=== PATIENT | male | born 1960 | race African-American/Black ===

== ENCOUNTER 2018-05-07 14:50 | Emergency (ER) | payer OTHER ==
[~2018-05-07] VITALS: Ht 182.9 cm; Wt 174.2 kg
[~2018-05-07 14:50] MED LIST: ADULT LOW DOSE81 MG PO; APIDRA PO; ASPIRIN EC325 M1; BENAZEPRIL HCL20 MG PO; BENTYL 20 MG TA20 M1 PO; BYSTOLIC 5 MG5 M1 PO; CLARITIN10 MG PO; COZAAR 50 MG TA50 MG PO; DIOVAN320 MG PO; HYDROCODON-ACE1 EAC7; HYDROCODON-ACE1 EAC7 PO; K-DUR10 ME1 PO; KEFLEX500 MG PO; LANTUS SUBQ; LASIX 20 MG TAB20 MG PO; LASIX 40 MG TAB40 M1; LASIX 40 MG TAB40 M1 PO; LOTREL 10-20 M1 EACH PO; MAGNESIUM400 MG PO; MOBIC15 MG; NORCO 5-325 TA1 EACH PO; ONDANSETRON HCL4 M2; OXYBUTYNIN 5 MG5 M2; PERCOCET 5-3251 EACH PO; PERCOCET PO; PREDNISONE 5 MG5 M1 PO; PROTONIX40 M1 PO; PROTONIX40 M2 PO; RANITIDINE 150150 MG PO; SPIRONOLACTONE25 M1 PO; TOUJEO SOL300 UNIT/1; TRIAMTERENE-HC1 EAC3 PO; VALIUM2 MG PO; ZANTAC 150MG T150 MG PO; ZETIA10 MG PO; ZOCOR40 MG PO
[2018-05-07] MEDS ORDERED: TYLENOL ARTHRI650 MG PO (15:59)
[2018-05-07 16:14] VITALS: BP 173/70
== END 2018-05-07 16:15 | disposition home or self-care (01) ==
LOC: ER 14:50
DX: S80.211A Abrasion, right knee, initial encounter (principal); S60.414A Abrasion of right ring finger, initial encounter; M54.5 Low back pain; E11.9 Type 2 diabetes mellitus without complications; I10 Essential (primary) hypertension; Z87.442 Personal history of urinary calculi; Z87.891 Personal history of nicotine dependence; W10.8XXA Fall (on) (from) other stairs and steps, initial encounter; Y93.89 Activity, other specified; Y92.89 Other specified places as the place of occurrence of the external cause; Y99.8 Other external cause status

== ENCOUNTER 2018-06-10 09:55 | Emergency (ER) | payer OTHER ==
[~2018-06-10] VITALS: Ht 177.8 cm; Wt 164.7 kg
[~2018-06-10 09:55] MED LIST changes: +TYLENOL ARTHRI650 MG PO
[2018-06-10] MEDS ORDERED: NORVASC10 MG PO (10:48)
[2018-06-10] MEDS ORDERED: VALIUM2 MG PO (10:49)
[2018-06-10] MEDS ORDERED: CHILDREN'S ASPI81 M1 PO ×2 (10:49→10:50)
[2018-06-10] MEDS ORDERED: LASIX 80 MG TAB80 MG PO (10:50)
[2018-06-10] MEDS ORDERED: ATORVASTATIN CA40 MG PO (10:50)
[2018-06-10] MEDS ORDERED: VENTOLIN HFA INH8 GM INH (10:51)
[2018-06-10] MEDS ORDERED: MAGOX 400400 MG PO (10:51)
[2018-06-10] MEDS ORDERED: BYSTOLIC 5 MG5 M1 PO (10:51)
[2018-06-10] MEDS ORDERED: OXYBUTYNIN 5 MG5 M2 PO (10:52)
[2018-06-10] MEDS ORDERED: NORCO 5-325 TA1 EACH PO (10:52)
[2018-06-10] MEDS ORDERED: PROTONIX40 M1 PO (10:52)
[2018-06-10] MEDS ORDERED: BASAGLAR K100 UNIT/1 SUBQ (10:53)
[2018-06-10] MEDS ORDERED: ZETIA10 MG PO (10:53)
[2018-06-10] MEDS ORDERED: COZAAR 25 MG TA25 M1 PO (10:53)
[2018-06-10 10:57] LABS: ABSOLUTE NEUTROPHILS 5.2 thou/uL (1.4-8.2); BASOPHILS 1.3 % (0.0-2.0); EOSINOPHILS 3.7 % (0.0-3.0); HEMATOCRIT 34.4 % (42.0-52.0); HEMOGLOBIN 11.1 gm/dL (14.0-18.0); MCH 27.9 pg (26.0-34.0); MCHC 32.2 g/dL (28.0-37.0); MCV 86.7 fL (80.0-100.0); MONOCYTES 7.3 % (1.0-8.0); PLATELET COUNT 347 thou/uL (150-400); POLYS 70.7 % (36.0-66.0); RBC 3.97 mil/uL (4.50-6.00); RDW 14.2 % (10.5-14.5); WBC 7.4 thou/uL (4.0-11.0)
[2018-06-10 11:05] LABS: ANION GAP 11 mmol/L (7-16); BUN 52 mg/dL (7-18); CALCIUM 9.4 mg/dL (8.5-10.1); CHLORIDE 105 mmol/L (98-107); CO2 25 mmol/L (21-32); CREATININE 4.3 mg/dL (0.7-1.3); GLUCOSE 144 mg/dL (74-106); POTASSIUM 5.5 mmol/L (3.5-5.1); SODIUM 141 mmol/L (136-145)
[2018-06-10 11:14] LABS: TROPONIN-I <0.06 ng/mL (<0.06)
[2018-06-10 11:50] VITALS: BP 171/71
--- NOTE | 2018-06-10 13:58 | EKG ---
[address] [address] ELECTROCARDIOGRAM REPORT Name: RICKI FARRAR Room #: DEP Shweta#: [id number] Admission: 06/10/18 Attend Phys: Discharge: 06/10/18 Date of : 56 Report #: [id number] THIS REPORT FOR: //name// [facility] ED Test Date: 2018-06-10 Test Time: 10:13:51 Pat Name: RICKI FARRAR Department: Room: Gender: M [employer] Agent: KOLBYChrista : 1960 Requested By: Wilber Mitchell Order Number: [id number] MD: Esequiel Slater Measurements Intervals [place] Rate: 68 P: 49 CA: 213 QRS: 2 QRSD: 96 T: 52 QT: 388 QTc: 413 Interpretive Statements Sinus rhythm Prolonged CA interval Probable left atrial enlargement Compared to ECG 01/08/2018 16:48:21 Poor R-wave progression no longer present Electronically Signed On 06-10-2018 13:57:49 HOME HEALTH NURSE LICENSED PRACTICAL by Esequiel Slater [email or web address] <ELECTRONICALLY SIGNED> By: Esequiel Slater MD 06/10/18 1357 [id number] [id number] Esequiel Slater MD /LOYDA
== END 2018-06-10 11:55 | disposition home or self-care (01) ==
LOC: ER 09:55
PROVIDERS: Emergency Medicine
DX: I12.9 Hypertensive chronic kidney disease with stage 1 through stage 4 chronic kidney disease, or unspecified chronic kidney disease (principal); E11.22 Type 2 diabetes mellitus with diabetic chronic kidney disease; N18.9 Chronic kidney disease, unspecified; E87.5 Hyperkalemia; R55 Syncope and collapse; N25.89 Other disorders resulting from impaired renal tubular function; Z87.442 Personal history of urinary calculi; Z87.891 Personal history of nicotine dependence; Z79.4 Long term (current) use of insulin

== ENCOUNTER 2018-07-13 21:24 | Inpatient (IN) | payer OTHER ==
[~2018-07-13] VITALS: Ht 182.9 cm; Wt 163.3 kg
[~2018-07-13 21:24] MED LIST changes: +ATORVASTATIN CA40 MG PO; +BASAGLAR K100 UNIT/1 SUBQ; +CHILDREN'S ASPI81 M1 PO; +COZAAR 25 MG TA25 M1 PO; +LASIX 80 MG TAB80 MG PO; +MAGOX 400400 MG PO; +NORVASC10 MG PO; +OXYBUTYNIN 5 MG5 M2 PO; +VENTOLIN HFA INH8 GM INH
[2018-07-13 21:25] VITALS: BP 189/60
--- NOTE | 2018-07-13 22:16 | EKG ---
[place] [address] [facility] [place] [place] [address] ELECTROCARDIOGRAM REPORT Name: RICKI FARRAR Room #: [facility] [place] [place] [id number] ������������������ Admission: 07/13/18 ������������������ Attend Phys: Discharge: ������������������ Date of : 56 Report #: [id number] ����������������������������������������������������������������� [id number] THIS REPORT FOR: //name// [facility] ED Test Date: 2018-07-13 Test Time: 21:54:14 Pat Name: RICKI FARRAR Department: Room: Gender: Manager Unix: aylin : 1960 Requested By: Ortega William Order Number: [id number] MD: Esequiel Slater Measurements Intervals [place] Rate: 74 P: 69 MA: 222 QRS: -3 QRSD: 96 T: 52 QT: 390 QTc: 433 Interpretive Statements Sinus rhythm Prolonged MA interval Probable left atrial enlargement Abnormal R-wave progression, late transition Compared to ECG 06/10/2018 10:13:51 No significant changes Electronically Signed On 07-13-2018 22:16:05 SELF PAY COLLECTOR by Esequiel Slater [email or web address] ��������������������������������������������� <ELECTRONICALLY SIGNED> ���������������������������������������� By: Esequiel Slater MD ��������������������������������������������� 07/13/18 2216 53 53 Esequiel Slater MD /LOYDA
[2018-07-13 23:10] LABS: ABSOLUTE NEUTROPHILS 6.2 thou/uL (1.4-8.2); BASOPHILS 1.1 % (0.0-2.0); EOSINOPHILS 3.2 % (0.0-3.0); HEMATOCRIT 30.8 % (42.0-52.0); LYMPHOCYTES 10.8 % (24.0-44.0); MCH 27.6 pg (26.0-34.0); MCHC 32.5 g/dL (28.0-37.0); MONOCYTES 9.2 % (1.0-8.0); PLATELET COUNT 352 thou/uL (150-400); POLYS 75.7 % (36.0-66.0); RBC 3.62 mil/uL (4.50-6.00); RDW 14.1 % (10.5-14.5); WBC 8.2 thou/uL (4.0-11.0)
[2018-07-13 23:12] LABS: ANION GAP 12 mmol/L (7-16); BUN 66 mg/dL (7-18); CHLORIDE 101 mmol/L (98-107); CO2 25 mmol/L (21-32); CREATININE 4.3 mg/dL (0.7-1.3); GLUCOSE 223 mg/dL (74-106); SODIUM 138 mmol/L (136-145)
[2018-07-13 23:21] LABS: ALBUMIN 3.4 g/dL (3.4-5.0); MAGNESIUM 2.4 mg/dL (1.8-2.4); SGOT 18 U/L (15-37); SGPT 18 U/L (30-65); TOTAL BILIRUBIN 0.3 mg/dL (<0.1-1.0); TOTAL PROTEIN 7.9 g/dL (6.4-8.2); TROPONIN-I <0.06 ng/mL (<0.06)
[2018-07-13 23:25] LABS: URINE BILIRUBIN NEGATIVE (Negative); URINE BLOOD NEGATIVE (Negative); URINE CLARITY CLEAR; URINE COLOR YELLOW; URINE GLUCOSE-RANDOM* NEGATIVE (Negative); URINE KETONES NEGATIVE (Negative); URINE LEUKOCYTES-REFLEX NEGATIVE (Negative); URINE NITRITE-REFLEX NEGATIVE (Negative); URINE PROTEIN (DIPSTICK) 1+ (Negative); URINE UROBILINOGEN 0.2 E.U./dl (0.2-1.0)
[2018-07-13 23:41] VITALS: BP 169/75
[2018-07-13 23:47] LABS: SQUAMOUS 0-3 Few /LPF (0-3); URINE RBC 3-10 Few /HPF (0-2); URINE WBC-REFLEX 0-5 Rare /HPF (0-5)
[2018-07-13 23:48] LABS: BACTERIA-REFLEX 1-9 Few /HPF (None Seen); CASTS None Seen /LPF (None Seen); CRYSTALS None Seen /LPF (None Seen)
[2018-07-14] VITALS (7 sets, daily range): BP systolic 130–188; BP diastolic 60–86
--- NOTE | 2018-07-14 02:18 | NUR ---
PT ARRIVED ON UNIT FROM ER AT 0000. ADMITTED WITH CHF EXACERBATION AND HYPERTENSION. AMBULATING TO BATHROOM INDEPENDENTLY. DENIES PAIN. RESTING COMFORTABLY. NO NEEDS VOICED. CALL LIGHT WITHIN REACH. WILL CONTINUE TO PROVIDE FREQUENT OBSERVATION.
[2018-07-14 05:46] LABS: CREATININE 4.2 mg/dL (0.7-1.3); POTASSIUM 4.7 mmol/L (3.5-5.1)
--- NOTE | 2018-07-14 10:45 | 2DMMODE ---
[facility] [address] [place] [address] 2 D/M-MODE ECHOCARDIOGRAM Name: CHARANRICKI HURST Room #: 460-P ADM IN M.R.#: [id number] ������������� Admission: 07/13/18 ������������� Attend Phys: Meenakshi Arrington Discharge: ��� ������������� ��� Date of : 56 Date of Service: 07/14/18 1044 �� Report #: [id number] �������� ��������������������������������������������[id number] THIS REPORT FOR: //name// APPROVED REPORT Study performed: 07/14/2018 09:33:05 EXAM: Comprehensive 2D, Doppler, and color-flow Echocardiogram Patient Location: Bedside Room #: [facility] Status: routine BSA: 2.74 HR: 60 bpm BP: 130/63 mmHg Rhythm: NSR Other Information Study Quality: Fair Technically limited study due to body habitus. Risk Factors: Cardiac Risk Factors: HTN, Hyperlipidemia, DM Indications Congestive Heart Failure Dyspnea Echo Enhancing Agent Indication: Endocardial border delineation Agent(s) / Amount(s) Used: Optison 3 cc 2D Dimensions IVSd: 13.38 (7-11mm) LVOT Diam: 21.00 (18-24mm) LVDd: 49.71 mm PWd: 14.41 (7-11mm) Ascending Ao: 31.09 (22-36mm) LVDs: 31.91 (25-40mm) Aortic Root: 28.06 mm Volumes Left Atrial Volume (Systole) Single Plane 4CH: 39.20 mL Single Plane 2CH: 68.04 mL LA ESV Index: 22.00 mL/m2 Aortic Valve [facility] [address] [place] [address] 2 D/M-MODE ECHOCARDIOGRAM Name: RICKI FARRAR Room #: 460-P [facility] IN M.R.#: [id number] ������������� Admission: 07/13/18 ������������� Attend Phys: Meenakshi Arrington Discharge: ��� ������������� ��� Date of : 56 Date of Service: 07/14/18 1044 �� Report #: [id number] �������� ��������������������������������������������[id number] AoV Peak Wei.: 1.96 m/s AO Peak Gr.: 15.43 mmHg LVOT Max P.00 mmHg LVOT Max V: 1.00 m/s TALA Vmax: 1.71 cm2 Mitral Valve E/A Ratio: 0.7 MV Decel. Time: 301.57 ms MV E Max Wei.: 0.90 m/s MV A Wei.: 1.23 m/s MV PHT: 87.45 ms IVRT: 69.20 ms TDI E/Lateral E': 15.00 E/Medial E': 11.25 Medial E' Wei.: 0.08 m/s Lateral E' Wei.: 0.06 m/s Pulmonary Valve PV Peak Wei.: 1.54 m/s PV Peak Gr.: 9.46 mmHg Pulmonary Vein P Vein S: 0.65 m/s P Vein A: 0.26 m/s P Vein D: 0.45 m/s P Vein A Dur.: 114.2 msec P Vein S/D Ratio: 1.44 Tricuspid Valve TR Peak Wei.: 2.77 m/s RAP Estimate: 7.00 mmHg TR Peak Gr.: 30.80 mmHg PA Pressure: 38.00 mmHg Left Ventricle The left ventricle is normal size. There is normal LV segmental wall motion. Mild concentric left ventricular hypertrophy. Left ventricular systolic function is normal. The left ventricular ejection fraction is within the normal range. LVEF is 60-65%. Mild diastolic dysfunction is present (impaired relaxation pattern). Right Ventricle The right ventricle is normal size. The right ventricular systolic function is normal. Atria The left atrium size is normal. The right atrium size is normal. [facility] [address] [place] [address] 2 D/M-MODE ECHOCARDIOGRAM Name: RICKI FARRAR Room #: 460-P [facility] IN .R.#: [id number] ������������� Admission: 07/13/18 ������������� Attend Phys: Meenakshi Arrington Discharge: ��� ������������� ��� Date of : 56 Date of Service: 07/14/18 1044 �� Report #: [id number] �������� ��������������������������������������������[id number] Aortic Valve Aortic valve is calcified. Trace aortic regurgitation. There is no aortic valvular stenosis. Mitral Valve The mitral valve is normal in structure. There is no mitral valve regurgitation noted. No evidence of mitral valve stenosis. Tricuspid Valve The tricuspid valve is normal in structure. Trace tricuspid regurgitation. Pulmonary artery pressure is 38 mmHg. Pulmonic Valve The pulmonary valve is normal in structure. There is no pulmonic valvular regurgitation. Great Vessels The aortic root is normal in size. IVC is normal in size and collapses >50% with inspiration. Pericardium There is no pericardial effusion. <Conclusion> The left ventricle is normal size. Mild concentric left ventricular hypertrophy. Left ventricular systolic function is normal. Mild diastolic dysfunction is present (impaired relaxation pattern). The right ventricle is normal size. The left atrium size is normal. The right atrium size is normal. Aortic valve is calcified. Trace aortic regurgitation. There is no mitral valve regurgitation noted. Trace tricuspid regurgitation. Pulmonary artery pressure is 38 mmHg. ��������������������������������������������� <ELECTRONICALLY SIGNED> ���������������������������������������� By: Cody Silvestre MD ��������������������������������������������� 07/14/18 1044 1044 1044 Cody Silvestre MD /INF
--- NOTE | 2018-07-14 11:51 | NUR ---
ASSUMED PT CARE AT 0645. PT IS A/OX4 WITH NO ISSUES OR CONCERNS. PT IS UP AT [place] AND ABLE TO AMBULATE WITH NO ISSUES. WOKED WITH PT AND CARDIAC REHAB. WILL CONTINUE TO [facility]
--- NOTE | 2018-07-14 12:33 | NUR ---
PT ADMITTED RELATED TO ELEVATED BLOOD PRESSURE. CM REVIEWED CHART AND SPOKE WITH CARE TEAM. CM MET WITH PT AT BEDSIDE THIS DAY. PT IS A&O X4. CM ROLE INTRODUCED. PT INDICATED HE LIVES IN A HOUSE WITH HIS AND DTR WITH 1 STEP TO ENTER AND NO STEPS INSIDE. 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 PT INDICATED HE HAS HOME O2 AND [facility]. PT INDICATED NO HH HX. PT INDICATED HE PLANS TO RETURN HOME ONCE MEDICALLY STABLE. CM TO FOLLOW INDICATED WITH DC PLANNING.
--- NOTE | 2018-07-15 01:05 | NUR ---
PATIENT ADMITTED FOR CHF EXACERBATION. PAIN CONTROLLED THIS SHIFT, PATIENT IN BED ASLEEP NO S/S OF PAIN OR DISCOMFORT. PATIENT ON 2L OF OXYGEN NO SHORTNESS OF AIR OR DISTRESS NOTED THIS SHIFT. PATIENT CONTINUES TO BE ON FLUID RESTRICTION. PATIENT IN BED ASLEEP AT THIS TIME BREATHING REGULAR AND UNLABOURED.
[2018-07-15 03:56] VITALS: BP 146/76
[2018-07-15 04:15] LABS: CHOLESTEROL 167 mg/dL (<200); HDL CHOLESTEROL 37 mg/dL (>40); LDL CHOLESTEROL 87 mg/dL (<100); SERUM ASSESSMENT Clear; TC:HDL 4.5 Ratio (Not establshd); TRIGLYCERIDE 217 mg/dL (<150); VLDL 43 mg/dL (<40)
[2018-07-15 08:00] VITALS: BP 152/62
[2018-07-15] MEDS ORDERED: BENICAR40 MG PO (10:43)
[2018-07-15 11:17] VITALS: BP 152/62
--- NOTE | 2018-07-15 12:29 | NUR ---
PT STABLE THROUGHOUT SHIFT. PT DISCHARGED HOME. PT GIVEN DC INSTRUCTIONS, RX AND RX EDUCATION. PT LEFT UNIT VIA WHEELCHAIR TO PRIVATE VEHICLE.
== END 2018-07-15 12:44 | disposition home or self-care (01) | DRG 291 ==
LOC: ER 21:24 → EROBS 23:32 → 4W 23:32
PROVIDERS: Emergency Medicine; Nurse Practitioner; Nurse Practitioner Family; ADMIT Hospitalist
DX: I13.0 Hypertensive heart and chronic kidney disease with heart failure and stage 1 through stage 4 chronic kidney disease, or unspecified chronic kidney disease (principal); I50.33 Acute on chronic diastolic (congestive) heart failure; N18.4 Chronic kidney disease, stage 4 (severe); Z68.42 Body mass index [BMI] 45.0-49.9, adult; I16.0 Hypertensive urgency; E78.5 Hyperlipidemia, unspecified; E66.01 Morbid (severe) obesity due to excess calories; G47.33 Obstructive sleep apnea (adult) (pediatric); E11.22 Type 2 diabetes mellitus with diabetic chronic kidney disease; I25.10 Atherosclerotic heart disease of native coronary artery without angina pectoris; Z87.442 Personal history of urinary calculi; Z87.891 Personal history of nicotine dependence; Z79.4 Long term (current) use of insulin; Z79.82 Long term (current) use of aspirin; Z79.899 Other long term (current) drug therapy; Z80.8 Family history of malignant neoplasm of other organs or systems
CPT/HCPCS: 10045

== ENCOUNTER → 2019-12-10 | Outpatient (CLI) | payer OTHER ==
[~2019-12-10] MED LIST changes: +BENICAR40 MG PO
== END ==
LOC: SJCVC 10:23
PROVIDERS: ATTEND Internal Medicine Cardiovascular Disease
DX: I25.10 Atherosclerotic heart disease of native coronary artery without angina pectoris (principal); I13.2 Hypertensive heart and chronic kidney disease with heart failure and with stage 5 chronic kidney disease, or end stage renal disease; E11.22 Type 2 diabetes mellitus with diabetic chronic kidney disease; N18.6 End stage renal disease; I50.9 Heart failure, unspecified; E78.00 Pure hypercholesterolemia, unspecified; E66.9 Obesity, unspecified; Z87.891 Personal history of nicotine dependence; Z79.82 Long term (current) use of aspirin; Z79.899 Other long term (current) drug therapy; Z79.4 Long term (current) use of insulin; Z99.2 Dependence on renal dialysis

== ENCOUNTER → 2019-12-22 | Outpatient (CLI) | payer OTHER | LOC: SJCVCIMAG 10:19 | PROVIDERS: ATTEND Internal Medicine Cardiovascular Disease | DX: I11.9 Hypertensive heart disease without heart failure (principal); I35.1 Nonrheumatic aortic (valve) insufficiency; E11.9 Type 2 diabetes mellitus without complications; I25.10 Atherosclerotic heart disease of native coronary artery without angina pectoris; E78.5 Hyperlipidemia, unspecified; E66.01 Morbid (severe) obesity due to excess calories ==

== ENCOUNTER → 2019-12-24 | Outpatient (CLI) | payer OTHER | LOC: SJCVCIMAG 07:15 | PROVIDERS: ATTEND Internal Medicine Cardiovascular Disease | DX: I44.0 Atrioventricular block, first degree (principal); I25.10 Atherosclerotic heart disease of native coronary artery without angina pectoris; I10 Essential (primary) hypertension; E78.5 Hyperlipidemia, unspecified; E11.9 Type 2 diabetes mellitus without complications; Z79.4 Long term (current) use of insulin; Z87.891 Personal history of nicotine dependence ==